=== PATIENT | male | born 1945 | race Caucasian/White ===

== ENCOUNTER 2016-10-08 23:55 | Emergency (ER) | payer MEDICARE ==
[2016-10-09 03:35] LABS: BASOPHIL% 0.2 % (0-2.5); DIFF IND YES; EOSINOPHIL% 0.1 % (0.0-7.0); HEMATOCRIT 39.6 % (38.0-50.0); HEMOGLOBIN 12.7 gm/dL (13.0-16.0); LYMPHOCYTE# 2.3 X10e3 (1.0-3.5); LYMPHOCYTE% 14.1 % (17.0-45.0); MEAN CELL VOLUME 93.4 FL (83-96); MEAN CORPUSCULAR HEMOGLOBIN 29.9 PG (28-34); MEAN PLATELET VOLUME 6.8 FL (6.5-11.5); MONOCYTE# 1.4 X10e3 (0-1.0); MONOCYTE% 8.5 % (3.0-12.0); NEUTROPHIL# 12.7 X10e3 (1.5-7.1); NEUTROPHIL% 77.1 % (40-75); PLATELET COUNT 483 X10e3 (140-420); RED BLOOD COUNT 4.25 X10e (3.90-5.60); RED CELL DISTRIBUTION WIDTH 16.9 % (11.0-15.5); WHITE BLOOD COUNT 16.4 X10e3 (4.0-10.5)
[2016-10-09 03:50] LABS: PLATELET ESTIMATE NORMAL (NORMAL)
[2016-10-09 03:51] LABS: ANISOCYTOSIS SL
[2016-10-09 03:57] LABS: ALBUMIN SERUM 3.5 g/dL (3.5-5.0); BILIRUBIN, DIRECT 0.1 mg/dL (0.0-0.2); BILIRUBIN,INDIRECT 0.6 mg/dL (0.0-0.9); BILIRUBIN,TOTAL 0.7 mg/dL (0.2-2.0); BUN/CREATININE RATIO 13.63; CALCIUM SERUM 8.9 mg/dL (8.4-10.2); CREATININE SERUM 1.1 mg/dL (0.6-1.4); GLOM FILT RATE Estimated 66.7 mL/min (>60); POTASSIUM 3.7 mmol/L (3.5-5.1); PROTEIN TOTAL SERUM 7.4 g/dL (6.0-8.3)
== END 2016-10-09 03:24 | disposition home or self-care (01) ==
LOC: CED 23:55
PROVIDERS: Emergency Medicine
DX: R20.2 Paresthesia of skin (principal); F17.200 Nicotine dependence, unspecified, uncomplicated; W19.XXXA Unspecified fall, initial encounter
CPT/HCPCS: 36415; 80048; 80076; 85025; 99283